=== PATIENT | female | born 1950 | race Two or more races ===

== ENCOUNTER 2019-08-12 00:03 | Emergency (ER) | payer OTHER, MEDICAID ==
[~2019-08-12] VITALS: Ht 157.5 cm; Wt 63.5 kg
[~2019-08-12 00:03] MED LIST: ALBUTEROL INH; ATORVASTATIN CA10 MG PO; BENADRYL25 MG PO; COUMADIN1 MG ORAL; DETROL2 MG PO; LEVALBUTER1.25 MG/3 IH; MECLIZINE HCL25 MG PO; METOPROLOL SUCC25 MG PO; NAPROXEN250 MG PO; NEXIUM20 MG PO; NORCO 5-325 TA1 EACH ORAL; NORCO 5-325 TA1 EACH PO; PAROXETINE HCL10 MG PO; PAROXETINE HCL20 MG PO; REGLAN10 MG PO; SINGULAIR10 MG PO; SOMA350 MG PO; XOPENEX HFA15 GM IH
[2019-08-12] MEDS ORDERED: LEVOTHYROXINE75 MCG ORAL (00:07)
[2019-08-12] MEDS ORDERED: DETROL2 MG ORAL (00:07)
[2019-08-12] MEDS ORDERED: [UNRECOGNIZED DRUG - OTHER] PO (00:07)
[2019-08-12] MEDS ORDERED: Morphine Sulfate 4mg/ml Inj (IV USE ONLY) IVP ONE ×2 (00:15→01:30)
--- NOTE | 2019-08-12 00:15 | NUR ---
ED Nurse Note: REcieved pt MAGGY from home with c/o severe back and lower abdominal pain x 4 days, pt states she just came now due to seeing hematuria, pt has hx of taking coumadin daily, pt rates pain at 10/10, denies cp, no sob or labored breathing noted, pt immediately gowned and placed on cardiac monitoring, IV line placed and labs drawn and sent, MD at bedside, will resume care as ordered and continue to closely monitor.
--- NOTE | 2019-08-12 00:17 | Emergency Room Report ---
History of Present Illness General Chief Complaint: Abdominal Pain Source: Patient Present Illness HPI This a 68-year-old female with multiple medical problems with hypertension, diabetes and currently taking Coumadin. She presents with complaint of back pain flank pain. Onset for last 4 days. Pain is mostly in the lower back and left side. No radiation. Pain is sharp and severe. Pain is 8 out of 10. Worse with movement. She also complaining of some trace hematuria for the last few days. No dysuria or frequency. Nothing made it better. Movement make it worse. 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 Patient History Past Medical History: see triage record, old chart reviewed, DM, HTN Past Surgical History: other Pertinent Family History: none Social History: Denies: smoking Last Menstrual Period: n/a Now: No Immunizations: other Reviewed Nursing Documentation: PMH: Agreed; PSxH: Agreed Nursing Documentation-PMH Past Medical History: No History, Except For Hx Hypertension: Yes Hx Asthma: Yes Hx Neurological Problems: Yes - migraine Hx Cerebrovascular Accident: Yes Review of Systems Eye: Denies: eye pain, blurred vision ENT: Denies: ear pain, nose congestion, throat swelling Respiratory: Denies: cough, shortness of breath Cardiovascular: Denies: chest pain, palpitations Gastrointestinal: Denies: abdominal pain, diarrhea, nausea, vomiting Musculoskeletal: Reports: back pain; Denies: joint pain Skin: Denies: rash Neurological: Denies: headache, numbness Endocrine: Denies: increased thirst, increased urine Hematologic/Lymphatic: Denies: easy bruising All Other Systems: negative except mentioned in HPI Physical Exam Vital Signs Date Time Temp Pulse Resp B/P (MAP) Pulse Ox O2 Delivery O2 Flow Rate FiO2 08/11/19 23:57 97.5 72 18 140/70 (93) 99 Room Air Vitals normal Sp02 EP Interpretation: reviewed, normal General Appearance: well appearing, no apparent distress, alert Head: normocephalic, atraumatic Eyes: bilateral eye PERRL, bilateral eye EOMI ENT: hearing grossly normal, normal pharynx Neck: full range of motion, supple, no meningismus Respiratory: chest non-tender, lungs clear, normal breath sounds Cardiovascular #1: regular rate, rhythm, no murmur Gastrointestinal: normal bowel sounds, non tender, no mass, no organomegaly, no bruit, non-distended Musculoskeletal: back normal - This to the lower back. No step-off. No anesthesia., normal range of motion, gait/station normal Psychiatric: mood/affect normal Medical Decision Making Diagnostic Impression: Primary Impression: Low back pain Qualified Codes: M54.5 - Low back pain Additional Impression: UTI (urinary tract infection) Qualified Codes: N30.00 - Acute cystitis without hematuria ER Course Patient presents back pain. No evidence of any cauda equina syndrome, spinal epidural abscess or neoplastic process. I do not think this is secondary to kidney stone either. She does have kidney stone but no ureteral stone. She does have a urinary tract infection. Will discharge home. CT/MRI/US Diagnostic Results CT/MRI/US Diagnostic Results : Imaging Test Ordered: CT abdomen pelvis Impression Read by radiologist. No appendicitis. Fatty liver. Nonobstructing stone in the left kidney. Chronic left T11-L1 compression fracture. Last Vital Signs Date Time Temp Pulse Resp B/P (MAP) Pulse Ox O2 Delivery O2 Flow Rate FiO2 08/11/19 23:57 97.5 72 18 140/70 (93) 99 Room Air Status: improved Disposition: HOME, SELF-CARE Condition: Stable Scripts Nitrofurantoin Monohyd/M-Cryst (Nitrofurantoin Barber-Mcr 100 mg) 100 Mg Capsule 100 MG ORAL Q12H, #14 CAP Prov: Aditya Khan MD 08/12/19 Hydrocodone/Acetaminophen 5-325* (HYDROCODONE/ACETAMINOPHEN 5-325*) 1 Each Tablet 1 TAB ORAL Q6H PRN for For Pain, #20 TAB 0 Refills Prov: Aditya Khan MD 08/12/19 Additional Instructions: Follow-up with your doctor in 3 to 7 days. Return if symptoms worsen. Aditya Khan MD Aug 12, 2019 00:17
[2019-08-12 00:20] VITALS: BP 145/71
[2019-08-12 00:28] LABS: BASOPHILS % (AUTO) 0.8 % (0.0-2.0); EOSINOPHILS % (AUTO) 3.8 % (0.0-3.0); HEMOGLOBIN 13.5 G/DL (12.0-16.0); LYMPHOCYTES % (AUTO) 22.7 % (20.0-45.0); MEAN CORPUSCULAR VOLUME 78 FL (80-99); MONOCYTES % (AUTO) 7.9 % (1.0-10.0); NEUTROPHILS % (AUTO) 64.9 % (45.0-75.0); PLATELET COUNT 295 K/UL (150-450); RED BLOOD COUNT 5.01 M/UL (4.20-5.40); RED CELL DISTRIBUTION WIDTH 13.6 % (11.6-14.8); WHITE BLOOD COUNT 9.3 K/UL (4.8-10.8)
[2019-08-12 00:39] LABS: ANION GAP 10 mmol/L (5-15); BLOOD UREA NITROGEN 10 mg/dL (7-18); CALCIUM 8.4 MG/DL (8.5-10.1); CARBON DIOXIDE 26 MMOL/L (21-32); CHLORIDE 101 MMOL/L (98-107); CREATININE 0.7 MG/DL (0.55-1.30); POTASSIUM 3.1 MMOL/L (3.5-5.1); SODIUM 137 MMOL/L (136-145)
[2019-08-12 00:44] LABS: ALANINE AMINOTRANSFERASE 48 U/L (12-78); ALBUMIN 3.5 G/DL (3.4-5.0); ALBUMIN/GLOBULIN RATIO 0.9 (1.0-2.7); ALKALINE PHOSPHATASE 181 U/L (46-116); ASPARTATE AMINO TRANSFERASE 40 U/L (15-37); BILIRUBIN,TOTAL 0.2 MG/DL (0.2-1.0)
[2019-08-12 00:53] LABS: INR 3.5 (0.9-1.1)
[2019-08-12 01:13] LABS: BILIRUBIN, URINE 1+ (NEGATIVE); GLUCOSE, URINE (UA) NEGATIVE (NEGATIVE); KETONES,URINE NEGATIVE (NEGATIVE); NITRITE,URINE NEGATIVE (NEGATIVE); PH,URINE 6 (4.5-8.0); PROTEIN,URINE 2+ (NEGATIVE); UROBILINOGEN,URINE 1 MG/DL (0.0-1.0)
--- NOTE | 2019-08-12 01:17 | Diagnostic Imaging Report ---
EXAM: CT Abdomen and Pelvis Without Intravenous Contrast CLINICAL HISTORY: PAIN TECHNIQUE: Axial computed tomography images of the abdomen and pelvis without intravenous contrast. CTDI is 8 mGy and DLP is 403 mGy-cm. One or more of the following dose reduction techniques were used: automated exposure control, adjustment of the mA and/or kV according to patient size, use of iterative reconstruction technique. COMPARISON: No relevant prior studies available. FINDINGS: Lung bases: No mass. No consolidation. ABDOMEN: Liver: Steatosis. Gallbladder and bile ducts: Not visualized. Pancreas: No ductal dilation. Spleen: Unremarkable. Adrenals: Unremarkable. Kidneys and ureters: No obstructing stones. No hydronephrosis. Nonobstructive stone in the left kidney. Stomach and bowel: No bowel obstruction. No bowel wall thickening. PELVIS: Appendix: No evidence of appendicitis. Bladder: No stones. Reproductive: Unremarkable. ABDOMEN and PELVIS: Intraperitoneal space: Unremarkable. Bones/joints: No acute fractures. Likely Chronic mild anterior wedging of T11, T12, and L1 without retropulsion. Osteopenia. Soft tissues: Unremarkable. Vasculature: No abdominal aortic aneurysm. Lymph nodes: No enlarged lymph nodes. IMPRESSION: 1. Hepatic steatosis. 2. Nonobstructive stone in the left kidney. No hydronephrosis. 3. Likely chronic mild anterior wedging of T11-L1 without retropulsion.
[2019-08-12 01:22] LABS: APPEARANCE,URINE SLIGHTLY CLOUDY; COLOR,URINE YELLOW; LEUKOCYTE ESTERASE ,URINE 2+ (NEGATIVE)
[2019-08-12] MEDS ORDERED: HYDROCODON-ACE1 EA15 ORAL (01:30)
[2019-08-12] MEDS ORDERED: MACROBID100 MG ORAL (01:30)
[2019-08-12] MEDS ORDERED: cefTRIAXone 1 GM in NS 55 ML IVPB ONE (01:30)
[2019-08-12 02:00] VITALS: BP 141/79
--- NOTE | 2019-08-12 02:00 | NUR ---
ED Nurse Note: Pt resting quietly, appears to be sleeping arouses easily to verbal stimuli, remains with mild pain at 3/10, no cp, no sob, pt completed IV antibiotics, no s/s of adverse reaction ntoed, tolerated well, using bedside commode, no hematuria noted, pt is to be discharged but has no way home and no taxi available due to protest, will allow to stay til am when taxi is running per MD.
[2019-08-12 04:30] VITALS: BP 130/88
[2019-08-12 04:40] VITALS: BP 141/79
--- NOTE | 2019-08-12 04:45 | NUR ---
ER DISCHARGE NOTE: Patient is cleared to be discharged per ERMD, pt is aox4, on room air, with stable vital signs. pt was given dc and prescription instructions, pt was able to verbalize understanding, pt id band and iv site removed without complications. pt is able to ambulate with steady gait. pt took all belongings.
[2019-09-08] MEDS ORDERED: PROPRANOLOL HCL10 MG ORAL (18:34)
[2019-09-08] MEDS ORDERED: DETROL2 MG ORAL (18:34)
[2019-09-08] MEDS ORDERED: OMEPRAZOLE40 M1 ORAL (18:34)
[2019-09-09] MEDS ORDERED: WARFARIN SODIUM3 MG ORAL (01:32)
== END 2019-08-12 04:40 | disposition home or self-care (01) ==
LOC: EDBD 00:03 → EMR 00:37
DX: M54.5 Low back pain (principal); N30.00 Acute cystitis without hematuria; I10 Essential (primary) hypertension; J45.909 Unspecified asthma, uncomplicated; G43.909 Migraine, unspecified, not intractable, without status migrainosus; E11.8 Type 2 diabetes mellitus with unspecified complications; Z86.73 Personal history of transient ischemic attack (TIA), and cerebral infarction without residual deficits
CPT/HCPCS: 36415; 74176; 80053; 81001; 84484; 85025; 85610; 85730; 87086; 87181; 96365; 96375; 96376; 99284; J0696; J2270; J2405

== ENCOUNTER 2020-01-15 15:51 | Emergency (ER) | payer OTHER, MEDICAID ==
[~2020-01-15] VITALS: Ht 160 cm; Wt 59.0 kg
[~2020-01-15 15:51] MED LIST changes: +ACETAMINOPHEN-1 EAC1 ORAL; +DETROL2 MG ORAL; +HYDROCODON-ACE1 EA15 ORAL; +IBUPROFEN600 M1 ORAL; +LEVOTHYROXINE75 MCG ORAL; +MACROBID100 MG ORAL; +OMEPRAZOLE40 M1 ORAL; +PROPRANOLOL HCL10 MG ORAL; +WARFARIN SODIUM3 MG ORAL; +ZOFRAN ODT8 MG ORAL; +[UNRECOGNIZED DRUG - OTHER] PO
--- NOTE | 2020-01-15 15:55 | NUR ---
ED Nurse Note: Patient from home and brought in by [facility]15 due to left flank pain with N/V which started this morning. Patient also started to experience blood in her urine today. No reports of fever or chills. AAO x4, ambulatory with non labored breathing.
[2020-01-15 16:00] VITALS: BP 156/82
[2020-01-15] MEDS ORDERED: Omnipaque-300 100ml vial INJ PRN (16:00)
[2020-01-15] MEDS ORDERED: Morphine Sulfate 2mg/ml Inj(IV/IM USE ONLY) IVP ONE (16:00)
--- NOTE | 2020-01-15 16:20 | NUR ---
ED Nurse Note: Collected blood and urine then sent.
[2020-01-15 16:22] LABS: BASOPHILS % (AUTO) 0.6 % (0.0-2.0); EOSINOPHILS % (AUTO) 2.4 % (0.0-3.0); HEMATOCRIT 40.6 % (37.0-47.0); LYMPHOCYTES % (AUTO) 15.9 % (20.0-45.0); MEAN CORPUSCULAR VOLUME 81 FL (80-99); MONOCYTES % (AUTO) 6.8 % (1.0-10.0); NEUTROPHILS % (AUTO) 74.2 % (45.0-75.0); PLATELET COUNT 300 K/UL (150-450); RED BLOOD COUNT 4.99 M/UL (4.20-5.40); WHITE BLOOD COUNT 8.8 K/UL (4.8-10.8)
[2020-01-15 16:31] LABS: INR 2.8 (0.9-1.1)
[2020-01-15 16:34] LABS: ANION GAP 9 mmol/L (5-15); APPEARANCE,URINE CLOUDY; BILIRUBIN, URINE NEGATIVE (NEGATIVE); BLOOD UREA NITROGEN 10 mg/dL (7-18); CALCIUM 8.1 MG/DL (8.5-10.1); CARBON DIOXIDE 27 MMOL/L (21-32); CHLORIDE 106 MMOL/L (98-107); COLOR,URINE RED; CREATININE 0.7 MG/DL (0.55-1.30); GLUCOSE, URINE (UA) NEGATIVE (NEGATIVE); KETONES,URINE 1+ (NEGATIVE); NITRITE,URINE NEGATIVE (NEGATIVE); POTASSIUM 3.6 MMOL/L (3.5-5.1); PROTEIN,URINE 3+ (NEGATIVE); SODIUM 142 MMOL/L (136-145); UROBILINOGEN,URINE NORMAL MG/DL (0.0-1.0)
[2020-01-15 16:35] LABS: LEUKOCYTE ESTERASE ,URINE 2+ (NEGATIVE)
[2020-01-15 16:38] LABS: ALANINE AMINOTRANSFERASE 20 U/L (12-78); ALBUMIN 3.5 G/DL (3.4-5.0); ALBUMIN/GLOBULIN RATIO 0.8 (1.0-2.7); ALKALINE PHOSPHATASE 137 U/L (46-116); ASPARTATE AMINO TRANSFERASE 23 U/L (15-37); BILIRUBIN,TOTAL 0.3 MG/DL (0.2-1.0)
--- NOTE | 2020-01-15 16:42 | Emergency Room Report ---
History of Present Illness General Chief Complaint: Abdominal Pain Present Illness HPI 69-year-old female with history of hypertension and hypothyroidism currently taking medication brought in by paramedics due to 1 day of sudden onset of left flank and upper abdominal pain rating it 10 at this time. Patient also complains of gross hematuria. Reports that she was last here in August 2019 for renal stone. Denies any urinary frequency and urgency. Complains of few bouts of nonbloody emesis. Denies any diarrhea constipation. Denies fever and chills. Has not taken medication for symptom relief. Denies chest pain, shortness of breath, and other associate symptoms. Denies being on any blood thinners. Denies tobacco smoke, drug use, alcohol intake. (Yari Taylor) Allergies: Coded Allergies: No Known Allergies (Unverified , 04/05/12) COVID-19 Screening Contact w/high risk pt: No Recent Travel to affected area: No Experienced COVID-19 symptoms?: Yes COVID-19 Testing performed MANAGER TECHNICAL SERVICES: No (Yari Taylor) Patient History Past Medical History: see triage record Past Surgical History: none Pertinent Family History: none Now: No Immunizations: UTD Reviewed Nursing Documentation: PMH: Agreed; PSxH: Agreed (Yari Taylor) Nursing Documentation-PMH Hx Cardiac Problems: Yes - Mitral Valve Prolapse Hx Hypertension: Yes Hx Asthma: Yes Hx Cancer: No Hx Gastrointestinal Problems: No - gallstone Hx Neurological Problems: Yes - migraine Hx Cerebrovascular Accident: Yes - 1997 (Yari Taylor) Review of Systems All Other Systems: negative except mentioned in HPI (Yari Taylor) Physical Exam Vital Signs Date Time Temp Pulse Resp B/P (MAP) Pulse Ox O2 Delivery O2 Flow Rate FiO2 01/15/20 15:45 98.4 90 14 168/75 (106) 99 Room Air Sp02 EP Interpretation: reviewed, normal General Appearance: alert, GCS 15, non-toxic, mild distress Head: normocephalic, atraumatic Eyes: bilateral eye normal inspection, bilateral eye PERRL ENT: hearing grossly normal, normal pharynx, no angioedema, normal voice Neck: full range of motion, supple/symm/no masses Respiratory: chest non-tender, lungs clear, normal breath sounds, no rhonchi, no retraction, speaking full sentences Cardiovascular #1: regular rate, rhythm, no edema Cardiovascular #2: 2+ carotid (R), 2+ carotid (L), 2+ radial (R), 2+ radial (L), 2+ dorsalis pedis (R), 2+ dorsalis pedis (L) Gastrointestinal: normal bowel sounds, non tender, soft, no mass, no organomegaly, no peritonitis, no bruit, non-distended, no guarding, no hernia, no pulsatile mass, no rebound Genitourinary: CVA tenderness (L) Musculoskeletal: back normal, no calf tenderness Neurologic: alert, motor strength/tone normal, oriented x3, sensory intact, responsive, speech normal Psychiatric: judgement/insight normal, memory normal, mood/affect normal, no suicidal/homicidal ideation Skin: no rash Lymphatic: no adenopathy (Yari Taylor) Medical Decision Making PA Attestation All diagnoses and treatment plans were reviewed and discussed with my supervising physician Dr. Gonzales (Yari Taylor) Diagnostic Impression: Primary Impression: Hydronephrosis with renal calculous obstruction ER Course 69-year-old female with history of hypertension and hypothyroidism currently taking medication brought in by paramedics due to 1 day of sudden onset of left flank and upper abdominal pain rating it 10 at this time. Patient also complains of gross hematuria. Reports that she was last here in August 2019 for renal stone. Denies any urinary frequency and urgency. Complains of few bouts of nonbloody emesis. Denies any diarrhea constipation. Denies fever and chills. Has not taken medication for symptom relief. Denies chest pain, shortness of breath, and other associate symptoms. Denies being on any blood thinners. Denies tobacco smoke, drug use, alcohol intake. Ddx considered but are not limited to: appendicitis, cholecystis, gastritis, gastroenteritis, UTI, pyelonephritis, SBO, diverticulitis, pyelonephritis, renal stone, obstructive renal stone, hydronephrosis Vital signs: are WNL, pt. is afebrile H&PE are most consistent with: Hydronephrosis with renal calculus obstruction ORDERS: abdominal CT, abdominal pain set, EKG, renal ultrasound ED INTERVENTIONS: NS bolus, Zofran, Pepcid, morphine, Toradol, ceftriaxone Patient was transferred to [facility] for admission with diagnosis of hydronephrosis with renal calculus obstruction to Dr. Garcia under supervision of : Christian pt stable at time of admission (Yari Taylor) ER Course Patient seen and examined by me. Patient has a history of kidney stones and presented with flank pain. CT scan demonstrated evidence of left-sided ureteral stone consistent with patient's presentation. She was given IV antibiotics in addition to a possible UTI. Due to the size of her stone and evidence of possible UTI will admit to the hospital. Due to insurance patient will be transferred to [facility]. Patient accepted by (Laron Gonzales M.D.) EKG Diagnostic Results Rate: normal Rhythm: NSR ST Segments: no acute changes Other Impression No acute ST changes ASA given to the pt in ED: No (Yari Taylor) CT/MRI/US Diagnostic Results CT/MRI/US Diagnostic Results #1: Imaging Test Ordered: CT head no contrast Impression COMPARISON: CT head dated 07/08/2013 FINDINGS: Brain: Encephalomalacia of the right parietal lobe adjacent to the posterior right lateral ventricle. Subtle hypodensity within the right basal ganglia. A few scattered deep white matter and. Ventricular hypodensities. No hemorrhage. Ventricles: See above. Bones/joints: Unremarkable. No acute fracture. Soft tissues: Unremarkable. Sinuses: Unremarkable as visualized. No acute sinusitis. Mastoid air cells: Unremarkable as visualized. No mastoid effusion. IMPRESSION: 1. No acute intracranial abnormality. 2. Likely prior right occipital infarct. 3. Chronic lacunar infarct of the right basal ganglia. CT/MRI/US Diagnostic Results #2: Imaging Test Ordered: CT abd pelvis w contrast Impression COMPARISON: CT abdomen and pelvis dated 09/08/2019. FINDINGS: Lung bases: Unremarkable. No mass. No consolidation. ABDOMEN: Liver: Unremarkable. No mass. Gallbladder and bile ducts: Prior cholecystectomy. No ductal dilation. Pancreas: Unremarkable. No mass. No ductal dilation. Spleen: Unremarkable. No splenomegaly. Adrenals: Unremarkable. No mass. Kidneys and ureters: 6 x 3 mm distal left ureterolith with mild proximal hydroureteronephrosis. There is mild left perinephric fat stranding. Stomach and bowel: Unremarkable. No obstruction. No mucosal thickening. PELVIS: Appendix: Normal appendix. Bladder: Unremarkable. No mass. Reproductive: Unremarkable as visualized. ABDOMEN and PELVIS: Intraperitoneal space: Unremarkable. No free air. No significant fluid collec tion. Bones/joints: Chronic T12 compression fracture. No dislocation. Soft tissues: Small fat-containing umbilical hernia. Vasculature: Mild atherosclerotic vascular disease. No abdominal aortic aneurysm. Lymph nodes: Unremarkable. No enlarged lymph nodes. IMPRESSION: 6 mm distal left ureterolith with resultant mild proximal hydroureteronephrosis and perinephric fat stranding. CT/MRI/US Diagnostic Results #3: Imaging Test Ordered: CT abd pelvis w/o contrast (Yari Taylor) Last Vital Signs Date Time Temp Pulse Resp B/P (MAP) Pulse Ox O2 Delivery O2 Flow Rate FiO2 01/15/20 15:45 98.4 90 14 168/75 (106) 99 Room Air (Yari Taylor) Disposition: SHORT-TERM HOSP Condition: Serious Yari Taylor Jan 15, 2020 16:42 Laron Gonzales M.D. Jan 15, 2020 20:53
--- NOTE | 2020-01-15 16:44 | Diagnostic Imaging Report ---
EXAM: CT Head Without Intravenous Contrast CLINICAL HISTORY: ABD PAIN TECHNIQUE: Axial computed tomography images of the head/brain without intravenous contrast. CTDI is 53.4 mGy and DLP is 1018.8 mGy-cm. One or more of the following dose reduction techniques were used: automated exposure control, adjustment of the mA and/or kV according to patient size, use of iterative reconstruction technique. COMPARISON: CT head dated 07/08/2013 FINDINGS: Brain: Encephalomalacia of the right parietal lobe adjacent to the posterior right lateral ventricle. Subtle hypodensity within the right basal ganglia. A few scattered deep white matter and. Ventricular hypodensities. No hemorrhage. Ventricles: See above. Bones/joints: Unremarkable. No acute fracture. Soft tissues: Unremarkable. Sinuses: Unremarkable as visualized. No acute sinusitis. Mastoid air cells: Unremarkable as visualized. No mastoid effusion. IMPRESSION: 1. No acute intracranial abnormality. 2. Likely prior right occipital infarct. 3. Chronic lacunar infarct of the right basal ganglia.
--- NOTE | 2020-01-15 17:00 | NUR ---
ED Nurse Note: Patient taken to CT in stable condition.
--- NOTE | 2020-01-15 17:10 | NUR ---
ED Nurse Note: Patient came back from CT in stable condition.
--- NOTE | 2020-01-15 17:50 | Diagnostic Imaging Report ---
EXAM: CT Abdomen and Pelvis With Intravenous Contrast CLINICAL HISTORY: ABD PAIN TECHNIQUE: Axial computed tomography images of the abdomen and pelvis with intravenous contrast. CTDI is 13.1 mGy and DLP is 690.1 mGy-cm. One or more of the following dose reduction techniques were used: automated exposure control, adjustment of the mA and/or kV according to patient size, use of iterative reconstruction technique. COMPARISON: CT abdomen and pelvis dated 09/08/2019. FINDINGS: Lung bases: Unremarkable. No mass. No consolidation. ABDOMEN: Liver: Unremarkable. No mass. Gallbladder and bile ducts: Prior cholecystectomy. No ductal dilation. Pancreas: Unremarkable. No mass. No ductal dilation. Spleen: Unremarkable. No splenomegaly. Adrenals: Unremarkable. No mass. Kidneys and ureters: 6 x 3 mm distal left ureterolith with mild proximal hydroureteronephrosis. There is mild left perinephric fat stranding. Stomach and bowel: Unremarkable. No obstruction. No mucosal thickening. PELVIS: Appendix: Normal appendix. Bladder: Unremarkable. No mass. Reproductive: Unremarkable as visualized. ABDOMEN and PELVIS: Intraperitoneal space: Unremarkable. No free air. No significant fluid collection. Bones/joints: Chronic T12 compression fracture. No dislocation. Soft tissues: Small fat-containing umbilical hernia. Vasculature: Mild atherosclerotic vascular disease. No abdominal aortic aneurysm. Lymph nodes: Unremarkable. No enlarged lymph nodes. IMPRESSION: 6 mm distal left ureterolith with resultant mild proximal hydroureteronephrosis and perinephric fat stranding.
[2020-01-15] MEDS ORDERED: Ketorolac 30mg Inj IV ONE (18:00)
[2020-01-15] MEDS ORDERED: cefTRIAXone 1 GM in NS 55 ML IVPB ONE (18:00)
--- NOTE | 2020-01-15 19:11 | NUR ---
HAND-OFF: Report given to Trudi LUQUE.
--- NOTE | 2020-01-15 19:15 | NUR ---
ED Nurse Note: Recieved report from REBEL Collier to resume care, pt in bed completely dressed and on bedpan, assisted off, gowned and re-placed on cardiac monitoring, pt has patent saline lock in left ac area, pt also c/o having abdominal pain at 6/10 and states meds given were not effective, immediately informed JUAN MANUEL Greenberg, no new orders given, v/s stable, will resume care as ordered and continue to closely monitor.
[2020-01-15 19:30] VITALS: BP 121/54
--- NOTE | 2020-01-15 20:00 | NUR ---
ED Nurse Note: Pt in bed continuing to c/o having abd pain, now at 8/10, PA informed again and states pt is to be transferred, pt will be admitted to [facility] with ETA of 2030, will continue to monitor and prepare for transfer, v/s stable, no chest pain or emesis or sob.
[2020-01-15 20:45] VITALS: BP 123/63
[2020-01-15] MEDS ORDERED: Morphine Sulfate 4mg/ml Inj (IV USE ONLY) IVP ONE (20:45)
--- NOTE | 2020-01-15 20:50 | NUR ---
ED Nurse Note: [facility] has arrived for pt transport, pt being transferrred to [facility], report called to LaurieRN Trainmaster at [phone], report given along with all pertinent info, pt also continues to c/o having pain, med orders now given and pt medicated for pain, saline lock intact and patent, pt has all belongings, transfer forms given to chair car driver, nad noted during pt transfer.
[2020-01-15 21:00] VITALS: BP 123/63
== END 2020-01-15 21:00 | disposition short-term general hospital (02) ==
LOC: EDBD 15:51 → EMR 16:00
DX: N13.2 Hydronephrosis with renal and ureteral calculous obstruction (principal); I10 Essential (primary) hypertension; E03.9 Hypothyroidism, unspecified; J45.909 Unspecified asthma, uncomplicated; Z86.73 Personal history of transient ischemic attack (TIA), and cerebral infarction without residual deficits; I34.1 Nonrheumatic mitral (valve) prolapse; G43.909 Migraine, unspecified, not intractable, without status migrainosus; Z87.442 Personal history of urinary calculi; K42.9 Umbilical hernia without obstruction or gangrene; G93.89 Other specified disorders of brain
CPT/HCPCS: 36415; 70450; 74178; 80053; 80307; 81003; 83690; 84484; 85025; 85610; 85730; 86850; 86900; 86901; 87086; 93005; 96361; 96365; 96375; 96376; 99285; J0696; J1885; J2270; J2405; J7030; Q9965; S0028